=== PATIENT | female | born 1995 | race Caucasian/White ===

== ENCOUNTER 2018-10-13 13:51 | Emergency (ER) | payer BC, OTHER ==
--- NOTE | 2018-10-13 14:09 | ER Document Report ---
ED Medical Screen (RME) - General Chief Complaint: Lower Abdominal Pain Stated Complaint: PELVIC PAIN Time Seen by Provider: 10/13/18 14:03 Primary Care Provider: ANGELINA HUNTER PA [Primary Care Provider] - Follow up as needed Notes: RAPID MEDICAL EVALUATION DISCLOSURE I have seen this patient as part of a Rapid Medical Evaluation and, if applicable, placed any initially appropriate orders. The patient will be seen and fully evaluated, including a full history and physical exam, by a provider (in Main ED or Fast Track) when a room becomes available. 23-year-old female here with complaints of pelvic pain that started in the early hours of the morning. States that it feels like a pressure. She has not taken anything for the pain. Pain is worse with walking. Denies hematuria frequency hesitancy dysuria vaginal bleeding/discharge. Of note, she did have sex last night but does not know if she may have any vaginal tears. EXAM Minimal right lower quadrant TTP Moderate suprapubic TTP TRAVEL OUTSIDE OF THE [place] IN LAST 30 DAYS: No - Related Data Allergies/Adverse Reactions: metronidazole [From Flagyl] Allergy (Verified 10/13/18 13:52) Past Medical History Renal/ Medical History: Denies: Hx Peritoneal Dialysis Past Surgical History: Reports: Hx Gynecologic Surgery - ovarian cyst removed - Immunizations Hx Diphtheria, Pertussis, Tetanus Vaccination: Yes Physical Exam - Vital signs Vitals: Temp Pulse Resp BP Pulse Ox 98.4 F 92 20 130/79 H 99 10/13/18 13:56 10/13/18 13:56 10/13/18 13:56 10/13/18 13:56 10/13/18 13:56 Course - Vital Signs Vital signs: Temp Pulse Resp BP Pulse Ox 98.4 F 92 20 130/79 H 99 10/13/18 13:56 10/13/18 13:56 10/13/18 13:56 10/13/18 13:56 10/13/18 13:56 Doctor's Discharge - Discharge Referrals: ANGELINA HUNTER PA [Primary Care Provider] - Follow up as needed
[2018-10-13 14:40] LABS: APPEARANCE,URINE SLIGHTLY-CLOUDY; BILIRUBIN,URINE NEGATIVE (NEGATIVE); COLOR,URINE YELLOW; GLUCOSE, URINE NEGATIVE (NEGATIVE); KETONES,URINE NEGATIVE (NEGATIVE); LEUKOCYTE ESTERASE,URINE NEGATIVE (NEGATIVE); NITRITE,URINE NEGATIVE (NEGATIVE); PROTEIN,URINE NEGATIVE (NEGATIVE); URINE SPECIFIC GRAVITY 1.025; UROBILINOGEN,URINE NEGATIVE mg/dL (<2.0)
--- NOTE | 2018-10-13 15:14 | ER Document Report ---
ED General - General Chief Complaint: Lower Abdominal Pain Stated Complaint: PELVIC PAIN Time Seen by Provider: 10/13/18 14:03 Primary Care Provider: [facility] [Provider Group] - Follow up in 3-5 days ANGELINA HUNTER PA [ACTIVE STAFF] - Follow up as needed TRAVEL OUTSIDE OF THE [place] IN LAST 30 DAYS: No - HPI Notes: Patient is a 23-year-old female that presents to the emergency department for chief complaint of pelvic pain. Patient reports pelvic pain that started around 5 AM this morning. She states she did have sexual intercourse yesterday but denied any pain during intercourse or immediately following. She states she is due to have her menstrual cycle start in the next few days and initially thought she was having menstrual cramps. She describes it as a tight full sensation in her pelvis that is constant with periods of sharp worsening of the pain. She states it radiates to her bilateral adnexa. She denies any associated fever, chills, dysuria, urinary frequency, nausea, vomiting, diarrhea and constipation. She does have a history of ovarian torsion and ovarian cysts in the past. Past Medical History: Ovarian cyst Past Surgical History: left oopherectomy Social History: Denies drugs alcohol and tobacco Family History: Reviewed and noncontributory for presenting illness Allergies: Reviewed, see documented allergy list. REVIEW OF SYSTEMS: CONSTITUTIONAL : No fever No chills No diaphoresis No recent illness EENT: No vision changes No congestion No sore throat CARDIOVASCULAR: No chest pain No palpitations RESPIRATORY: No shortness of breath No cough No difficulty breathing GASTROINTESTINAL: No abdominal pain No nausea No vomiting No diarrhea GENITOURINARY: No dysuria Pelvic pain No hematuria No difficulty urinating MUSCULOSKELETAL: No back pain No leg pain No arm pain SKIN: No rashes No lesions LYMPHATIC: No swollen, enlarged glands. NEUROLOGICAL: No lightheadedness No headache No weakness No paresthesias PSYCHIATRIC: No anxiety No depression PHYSICAL EXAMINATION: Vital signs reviewed, nursing noted reviewed. GENERAL: Well-appearing, well-nourished and in no acute distress. HEAD: Atraumatic, normocephalic. EYES: Eyes appear normal, extraocular movements intact, sclera anicteric, conjunctiva are normal. ENT: nares patent, oropharynx clear without exudates. Moist mucous membranes. NECK: Normal range of motion, supple without lymphadenopathy LUNGS: Breath sounds clear to auscultation bilaterally and equal. No wheezes rales or rhonchi. HEART: Regular rate and rhythm without murmurs ABDOMEN: Soft, suprapubic and bilateral adnexal tenderness, no McBurney's point tenderness, normoactive bowel sounds. No rebound, guarding, or rigidity. No masses appreciated. : Thick white vaginal discharge. Uterine and right adnexal tenderness with no appreciable masses or fullness. Mild left adnexal tenderness. No chandelier sign but some discomfort with cervical palpation. Trace bleeding from the cervical os. Normal external vaginal exam, no vaginal lacerations. EXTREMITIES: Nontender, good range of motion, no pitting or edema. NEUROLOGICAL: No focal neurological deficits. Moves all extremities spontaneously Motor and sensory grossly intact on exam. PSYCH: Normal mood, normal affect. SKIN: Warm, Dry, normal turgor, no rashes or lesions noted on exposed skin - Related Data Allergies/Adverse Reactions: metronidazole [From Flagyl] Allergy (Verified 10/13/18 13:52) Past Medical History - Social History Smoking Status: Never Smoker Family History: Other Patient has suicidal ideation: No Patient has homicidal ideation: No Renal/ Medical History: Denies: Hx Peritoneal Dialysis Past Surgical History: Reports: Hx Gynecologic Surgery - ovarian cyst removed - Immunizations Hx Diphtheria, Pertussis, Tetanus Vaccination: Yes Physical Exam - Vital signs Vitals: Temp Pulse Resp BP Pulse Ox 98.4 F 92 20 130/79 H 99 10/13/18 13:56 10/13/18 13:56 10/13/18 13:56 10/13/18 13:56 10/13/18 13:56 Course - Re-evaluation Re-evalutation: 10/13/18 15:13 Vitals reviewed. Nursing notes reviewed. Patient was offered pain medication but declined. She is hemodynamically stable and does not appear to be in severe distress. She has a negative UA and urine . Patient does have a history of ovarian torsion and pelvic ultrasound will be obtained to evaluate for torsion, tubo-ovarian abscess and ruptured ovarian cyst. 10/13/18 15:27 Patient does have some moderate discomfort with pelvic exam and will now be given a dose of Toradol for pain management. 10/13/18 16:52 Patient's blood work is unremarkable. Her ultrasound shows normal blood flow with a right hemorrhagic ovarian cyst which is likely causing her symptoms. Patient felt better after the Toradol. She has remained hemodynamically stable. She will be referred to [facility] for further follow-up. She was counseled on return precautions and verbalized understanding. Stable at discharge. Laboratory 10/13/18 10/13/18 10/13/18 14:08 15:24 15:35 WBC 11.8 H RBC 4.51 Hgb 14.2 Hct 39.9 MCV 88 MCH 31.4 MCHC 35.5 RDW 12.0 Plt Count 263 Seg Neutrophils % 81.9 H Lymphocytes % 13.7 Monocytes % 3.7 Eosinophils % 0.5 Basophils % 0.2 Absolute Neutrophils 9.7 H Absolute Lymphocytes 1.6 Absolute Monocytes 0.4 Absolute Eosinophils 0.1 Absolute Basophils 0.0 Sodium Potassium Chloride Carbon Dioxide Anion Gap BUN Creatinine Est GFR ( Amer) Est GFR (Non-Af Amer) Glucose Calcium Total Bilirubin Direct Bilirubin Neonat Total Bilirubin Neonat Direct Bilirubin Neonat Indirect Bili AST ALT Alkaline Phosphatase Total Protein Albumin Urine Color YELLOW Urine Appearance SLIGHTLY-CLOUDY Urine pH 5.0 Ur Specific [place] 1.025 Urine Protein NEGATIVE Urine Glucose (UA) NEGATIVE Urine Ketones NEGATIVE Urine Blood NEGATIVE Urine Nitrite NEGATIVE Urine Bilirubin NEGATIVE Urine Urobilinogen NEGATIVE Ur Leukocyte Esterase NEGATIVE Urine WBC (Auto) 1 Squamous Epi Cells Auto 5 Urine Mucus (Auto) MOD Urine Ascorbic Acid NEGATIVE Urine HCG, Qual NEGATIVE Trichomonas (Wet Prep) NO TRICHOMONAS SEEN Vaginal WBC FEW WBCS SEEN Vaginal RBC 1+ RBCS SEEN Vaginal Yeast NO YEAST SEEN 10/13/18 15:35 WBC RBC Hgb Hct MCV MCH MCHC RDW Plt Count Seg Neutrophils % Lymphocytes % Monocytes % Eosinophils % Basophils % Absolute Neutrophils Absolute Lymphocytes Absolute Monocytes Absolute Eosinophils Absolute Basophils Sodium 140.1 Potassium 3.8 Chloride 107 Carbon Dioxide 25 Anion Gap 8 BUN 10 Creatinine 0.91 Est GFR ( Amer) > 60 Est GFR (Non-Af Amer) > 60 Glucose 83 Calcium 9.4 Total Bilirubin 0.4 Direct Bilirubin 0.1 Neonat Total Bilirubin Not Reportable Neonat Direct Bilirubin Not Reportable Neonat Indirect Bili Not Reportable AST 19 ALT 29 Alkaline Phosphatase 87 Total Protein 7.3 Albumin 4.1 Urine Color Urine Appearance Urine pH Ur Specific [place] Urine Protein Urine Glucose (UA) Urine Ketones Urine Blood Urine Nitrite Urine Bilirubin Urine Urobilinogen Ur Leukocyte Esterase Urine WBC (Auto) Squamous Epi Cells Auto Urine Mucus (Auto) Urine Ascorbic Acid Urine HCG, Qual Trichomonas (Wet Prep) Vaginal WBC Vaginal RBC Vaginal Yeast Pelvis Ultrasound 10/13/18 15:10 IMPRESSION: Right ovarian hemorrhagic cyst. Status post left oophorectomy. Normal sonographic appearance of the uterus. 10/13/18 16:57 Patient gonorrhea and Chlamydia testing is still pending. Lab states it will be about 25 minutes until it is resulted. Patient does not have any concerns for STD and does not wish to have prophylactic treatment. She also does not wish to wait in the emergency room for her test results. - Vital Signs Vital signs: Temp Pulse Resp BP Pulse Ox 98.4 F 92 20 130/79 H 99 10/13/18 13:56 10/13/18 13:56 10/13/18 13:56 10/13/18 13:56 10/13/18 13:56 - Laboratory Result Diagrams: 10/13/18 15:35 10/13/18 15:35 Laboratory results interpreted by me: 10/13/18 15:35 WBC 11.8 H Seg Neutrophils % 81.9 H Absolute Neutrophils 9.7 H Discharge - Discharge Clinical Impression: Hemorrhagic cyst of right ovary, Pelvic pain Condition: Stable Disposition: HOME, SELF-CARE Instructions: Ovarian Cyst ([facility]) Additional Instructions: Please return to the emergency department if you have any worsening, or concern of your symptoms. Please return to the emergency department if you develop chest pain, difficulty breathing, severe abdominal pain, or ongoing vomiting. Please follow-up with your primary care physician in 2-3 days and any other recommended physicians. If prescribed, take all medications as directed. If you have any questions or concerns do not hesitate to return the emergency department for evaluation. Referrals: ANGELINA HUNTER PA [ACTIVE STAFF] - Follow up as needed [facility] [Provider Group] - Follow up in 3-5 days
[2018-10-13] MEDS ORDERED: KETOROLAC TROMETHAMINE INJ/PF 30 MG/1 ML SDV IV ONE (15:27)
[2018-10-13 15:44] LABS: RBCS (WET MOUNT) 1+ RBCS SEEN; T.VAGINALIS (WET MOUNT) NO TRICHOMONAS SEEN; WBCS (WET MOUNT) FEW WBCS SEEN; YEAST (WET MOUNT) NO YEAST SEEN
[2018-10-13 15:48] LABS: ABSOLUTE EOSINOPHILS # (AUTO) 0.1 10^3/uL (0.0-0.6); ABSOLUTE LYMPHOCYTES (AUTO) 1.6 10^3/uL (0.5-4.7); ABSOLUTE MONOCYTES (AUTO) 0.4 10^3/uL (0.1-1.4); ABSOLUTE NEUT (AUTO) 9.7 10^3/uL (1.7-8.2); BASOPHILS % (AUTO) 0.2 % (0-2); EOSINOPHILS % (AUTO) 0.5 % (0-6); HEMATOCRIT 39.9 % (36.0-47.0); HEMOGLOBIN 14.2 g/dL (12.0-15.5); LYMPHOCYTES % (AUTO) 13.7 % (13-45); MEAN CORPUSCULAR HEMOGLOBIN 31.4 pg (27.0-33.4); MEAN CORPUSCULAR HGB CONC 35.5 g/dL (32.0-36.0); MEAN CORPUSCULAR VOLUME 88 fl (80-97); MONOCYTES % (AUTO) 3.7 % (3-13); PLATELET COUNT 263 10^3/uL (150-450); RED BLOOD COUNT 4.51 10^6/uL (3.72-5.28); SEGMENTED NEUTROPHILS % (AUTO) 81.9 % (42-78); TOTAL CELLS COUNTED % (AUTO) 100 %; WHITE BLOOD COUNT 11.8 10^3/uL (4.0-10.5)
[2018-10-13 16:04] LABS: ALANINE AMINOTRANSFERASE 29 U/L (9-52); ALBUMIN 4.1 g/dL (3.5-5.0); ALKALINE PHOSPHATASE 87 U/L (38-126); ANION GAP 8 (5-19); ASPARTATE AMINO TRANSFERASE 19 U/L (14-36); BILIRUBIN,DIRECT 0.1 mg/dL (0.0-0.4); BILIRUBIN,TOTAL 0.4 mg/dL (0.2-1.3); BLOOD UREA NITROGEN 10 mg/dL (7-20); CALCIUM 9.4 mg/dL (8.4-10.2); CARBON DIOXIDE 25 mmol/L (22-30); CHLORIDE 107 mmol/L (98-107); GLUCOSE 83 mg/dL (75-110); POTASSIUM 3.8 mmol/L (3.6-5.0); SODIUM 140.1 mmol/L (137-145); TOTAL PROTEIN 7.3 g/dL (6.3-8.2)
--- NOTE | 2018-10-13 16:41 | RADIOLOGY REPORT (SQ) ---
EXAM DESCRIPTION: U/S NON OB PEL W/DOPPLER COMPLETED DATE/TIME: 10/13/2018 4:19 pm REASON FOR STUDY: pelvic pain COMPARISON: None. TECHNIQUE: Dynamic and static grayscale images acquired of the pelvis via transabdominal approach an d recorded on PACS. Additional selected color Doppler and spectral images recorded. LIMITATIONS: None. FINDINGS: UTERUS: Contour normal. No mass. ENDOMETRIAL STRIPE: No focal or generalized thickening. No masses. CERVIX: No nabothian cysts. RIGHT OVARY AND DOPPLER: The right ovary is expanded by a 5.1 x 3.9 x 4.8 cm cystic structure demonst rating lacy internal echogenicity, consistent with a hemorrhagic cyst. Spectral Doppler interrogatio n demonstrates normal arterial and venous blood flow. LEFT OVARY AND DOPPLER: Surgically absent. FREE FLUID: A small amount of free fluid is seen within the pelvic cul-de-sac and adjacent to the rig ht adnexa. OTHER: No other significant finding. MEASUREMENTS: UTERUS: 8.1 x 3.7 x 4.8 cm ENDOMETRIAL STRIPE: 0.5 cm RIGHT OVARY: 5.7 x 4.7 x 6.5 cm LEFT OVARY: Surgically absent IMPRESSION: Right ovarian hemorrhagic cyst. Status post left oophorectomy. Normal sonographic appe arance of the uterus. TECHNICAL DOCUMENTATION: JOB ID: [id number] [employer]- All Rights Reserved Rev-12/15 Reading location - IP/workstation name: [email or web address]
[2018-10-13 17:14] LABS: CHLAM PCR NOT DETECTED (NOT DETECT); GON PCR NOT DETECTED (NOT DETECT)
[2018-10-13 17:18] VITALS: BP 120/63
== END 2018-10-13 17:19 | disposition home or self-care (01) ==
LOC: ER 13:51
DX: N83.201 Unspecified ovarian cyst, right side (principal); R10.2 Pelvic and perineal pain; Z90.721 Acquired absence of ovaries, unilateral; N89.8 Other specified noninflammatory disorders of vagina; Z88.1 Allergy status to other antibiotic agents
CPT/HCPCS: 99284; 36415; 87210; 85025; 81025; 80053; 81001; 87491; 87591; 76856; 93976; J1885